=== PATIENT | male | born 2000 | race Caucasian/White ===

== ENCOUNTER 2020-05-27 13:41 | Emergency (ER) | payer OTHER ==
[~2020-05-27] VITALS: Ht 175.3 cm; Wt 71.7 kg
--- NOTE | 2020-05-27 15:01 | REPVR ---
PROCEDURE INFORMATION: Exam: XR Right Tibia and Fibula Exam date and time: 05/27/2020 2:54 PM Age: 19 years old Clinical indication: Swelling, leg or foot and other: Ttp; Additional info: R/O fracture, ttp tibia/anterior tibialis TECHNIQUE: Imaging protocol: XR Right tibia and fibula. Views: 2 views. COMPARISON: No relevant prior studies available. FINDINGS: Bones/joints: No acute fracture is identified. There is no osseous erosion or cortical destruction. The partially evaluated knee and ankle joints appear normally aligned. Soft tissues: There is mild generalized soft tissue swelling. IMPRESSION: Mild nonspecific generalized soft tissue swelling without underlying osseous change. Electronically signed by: Feliz Barnett On 05/27/2020 15:01:02 PM
[2020-05-27 15:20] LABS: BASO % 0.4 % (0.0-1.0); EOS # 0.2 10^3/uL (0.0-0.5); EOS % 2.5 % (0.0-3.0); HEMATOCRIT 44.1 % (42.0-52.0); HEMOGLOBIN 14.8 g/dl (13.5-17.5); LYMPH # 1.6 10^3/uL (1.5-5.0); LYMPH % 18.8 % (24.0-44.0); MEAN CORPUSCULAR HEMOGLOBIN 28.5 pg (27.0-33.0); MEAN CORPUSCULAR HGB CONC 33.6 g/dl (32.0-36.5); MEAN CORPUSCULAR VOLUME 84.8 fl (80.0-96.0); MONO # 0.4 10^3/uL (0.0-0.8); MONO % 5.3 % (0.0-5.0); NEUTROPHILS % 72.6 % (36.0-66.0); PLATELET COUNT, AUTOMATED 188 10^3/uL (150-450); WHITE BLOOD COUNT 8.3 10^3/uL (4.0-10.0)
--- NOTE | 2020-05-27 15:37 | REPVR ---
PROCEDURE INFORMATION: Exam: US Duplex Right Lower Extremity Veins, Limited Exam date and time: 05/27/2020 3:23 PM Age: 19 years old Clinical indication: Pain; Other: Calf; Additional info: Right calf pain, rule out DVT. TECHNIQUE: Imaging protocol: Real-time Duplex ultrasound of the Right Lower Extremity with 2-D foote scale, color Doppler flow and spectral waveform analysis with image documentation. Limited exam was focused on the right lower extremity veins. COMPARISON: CR - Tibia, Fibula lower leg RIGHT 05/27/2020 2:40:35 PM FINDINGS: Right deep veins: The common femoral, femoral, and popliteal veins are patent without thrombus. Normal compressibility and/or augmentation response. Soft tissues: Unremarkable. IMPRESSION: No evidence of deep vein thrombosis in the visualized lower extremity. Electronically signed by: Jack Trevino On 05/27/2020 15:37:05 PM
[2020-05-27 15:38] LABS: C REACTIVE PROTEIN QUANTITATIV 0.55 MG/DL (0.00-0.30)
[2020-05-27 15:54] LABS: PLATELET CLUMPS SMALL AMT; PLATELET ESTIMATE NORMAL (NORMAL)
[2020-05-27 16:15] LABS: ERYTHROCYTE SEDIMENTATION RATE 5 mm/hr (0-15)
--- NOTE | 2020-05-27 16:44 | REPVR ---
PROCEDURE INFORMATION: Exam: XR Right Knee Exam date and time: 05/27/2020 4:34 PM Age: 19 years old Clinical indication: Knee and lower leg; Right; Patient HX: Pain and swelling behind RT knee; Additional info: R posterior knee pain, limited rom TECHNIQUE: Imaging protocol: XR Right knee. Views: 4 or more views. COMPARISON: CR Tibia, Fibula lower leg RIGHT 05/27/2020 2:40 PM FINDINGS: Bones/joints: There is a large joint effusion. There is no fracture, dislocation or subluxation. Soft tissues: Normal. IMPRESSION: Large joint effusion. Electronically signed by: Jim Pastor On 05/27/2020 16:44:27 PM
[2020-05-27] MEDS ORDERED: ANEC4CRE3 TOP (17:03)
[2020-05-27] MEDS ORDERED: NAPR-837 PO (17:03)
[2020-05-27 17:10] VITALS: BP 120/70
== END 2020-05-27 17:13 | disposition home or self-care (01) ==
LOC: M ED 13:41
DX: M25.461 Effusion, right knee (principal); M79.661 Pain in right lower leg; M79.662 Pain in left lower leg; F17.200 Nicotine dependence, unspecified, uncomplicated